=== PATIENT | male | born 1985 | race Two or more races ===

== ENCOUNTER → 2025-06-25 | Emergency (ER) | payer OTHER ==
[~2025-06-25] VITALS: Ht 185.4 cm; Wt 81.6 kg
[~2025-06-25] MED LIST: 0.9 % SODIUM CHLORIDE 1,000 ML IV ONE; FAMOTIDINE/PF 20 MG/2 ML VIAL ONE; FAMOtidine 10 MG/ML (4ML VIAL) IV ONE
[2025-06-25 21:18] LABS: BASO % 0.4 % (0.1-1.2); EOS # 0.01 (0.04-0.54); EOS % 0.1 % (0.7-7.0); LYMPH # 1.69 (1.18-3.74); LYMPH % 20.0 % (19.3-53.1); MEAN PLATELET VOLUME 9.60 fl (9.4-12.4); MONO # 0.44 (0.24-0.82); MONO % 5.2 % (4.7-12.5); NEUT # 6.26 (1.56-6.13); NEUT % 74.2 % (34.0-71.1); RED CELL DISTRIBUTION WIDTH 13.6 % (11.6-14.4)
[2025-06-25 21:37] LABS: ALT/SGPT 44.0 U/L (12-78); AST/SGOT 22.0 U/L (15-37); BILIRUBIN TOTAL 0.65 mg/dL (0.3-1.2); BUN CREA RATIO 17.0 (7.0-25.0); CREATININE SERUM 1.13 mg/dL (0.70-1.30); GFR 72.62; GLOBULINA 3.6 G/DL (2.4-3.5); GLUCOSE FASTING 103.0 mg/dL (65-100); OSMOLALITY SERUM 280.0 MOSM/KG (275-295); PHOSPHOKINASE CREATININE 351.0 U/L (39-308)
[2025-06-25 21:43] LABS: CKMB 4.7 NG/ML (0.5-3.6)
[2025-06-25 21:49] LABS: URINE APPEARANCE Clear; URINE BILIRRUBIN Negative (NEGATIVE); URINE BLOOD Negative; URINE COLOR Yellow; URINE GLUCOSE Negative (NEGATIVE); URINE LEUKOCYTE Negative; URINE NITRATE Negative; URINE PROTEIN Negative (NEGATIVE); URINE UROBILINOGEN 0.2 E.U./dl
[2025-06-25 21:52] LABS: URINE RBC 2.3 uL (0.0-20.8); URINE WBC 2.4 uL (0.0-23.2)
[2025-06-25 21:54] LABS: URINE BACTERIA 1.1 uL (0.0-1933); URINE CAST 0.14 uL (0.0-1.40); URINE EPITHELIAL CELLS 1.2 uL (0.0-38.8); URINE KETONE 80 (NEGATIVE)
[2025-06-25 22:02] LABS: COCAINE NEGATIVE (NEGATIVE); METHADONE NEGATIVE (NEGATIVE); OPIATES NEGATIVE (NEGATIVE); THC ( Cannabinoids) NEGATIVE (NEGATIVE)
== END | disposition home or self-care (01) ==
LOC: ER 19:12
PROVIDERS: General Practice
DX: R07.9 Chest pain, unspecified (principal); E86.0 Dehydration